=== PATIENT | male | born 1960 | race Caucasian/White ===

== ENCOUNTER 2019-06-28 20:57 | Emergency (ER) | payer SELFPAY, MEDICAID ==
[2019-06-28] MEDS: NAPROXEN 500 MG TAB PO (22:47)
== END 2019-06-28 23:32 | disposition home or self-care (01) ==
LOC: FTE 20:57
DX: S70.02XA Contusion of left hip, initial encounter (principal); S20.212A Contusion of left front wall of thorax, initial encounter; W01.0XXA Fall on same level from slipping, tripping and stumbling without subsequent striking against object, initial encounter; Y92.9 Unspecified place or not applicable
CPT/HCPCS: 71100; 99283-25